=== PATIENT | female | born 1985 | race Hispanic/Latino ===

== ENCOUNTER 2018-08-24 23:45 | Day surgery (SDC) | payer OTHER ==
[2018-08-25] MEDS ORDERED: Betamet Acet/Betamet Na Ph 30 MG/5 ML VIAL IM SCH (01:00)
--- NOTE | 2018-08-25 08:32 | PRG ---
DATE OF SERVICE: 08/24/2018 PRIMARY NUTRITION SERVICES ASSOCIATE: Dr. Brady Christopher CHIEF COMPLAINT: Abdominal pain. HISTORY OF PRESENT ILLNESS: The patient is a 33-year-old female with an intrauterine at 35 weeks who has presented to Labor and Delivery with abdominal pains which the patient reports b navi several hours earlier. She denies any falls, intercourse, recent illness. She reports that her pains are every 4-5 minutes. She denies fever, illness, headache, chest pain, shortness of breath, nausea, vomiting, diarrhea, constipation, leakage of fluid or vaginal bleeding. PAST MEDICAL HISTORY: Negative. PAST SURGICAL HISTORY: Negative. OBSTETRIC HISTORY: This is her fourth . SOCIAL HISTORY: Denies drug, alcohol or tobacco use. OB LABS: Unavailable at time of dictation. REVIEW OF SYSTEMS: Per HPI. PHYSICAL EXAMINATION: VITAL SIGNS: Blood pressure 126/72, heart rate of 107, respiratory rate of 18, temperature 98.5. GENERAL: She appears to be in no acute distress. She is alert and oriented, cooperative and pleasan t to interact with. HEENT: Head is normocephalic, atraumatic. LUNGS: Clear to auscultation bilaterally. HEART: Regular rate and rhythm. ABDOMEN: Soft, gravid. EXTREMITIES: Nontender, nonedematous. CERVICAL EXAM: 1 and 50, -2 station per nursing staff unchanged after 2 hours. EXTREMITIES: Nontender, nonedematous. heart tracing performed. Baseline noted to be in the 140s with moderate long-term variability, positive accelerations, no decelerations. Tocometer showing irritability with contractions every 3- 6 minutes. ASSESSMENT AND PLAN: The patient is a 33-year-old female with an intrauterine at 35 weeks who presented with uterine contractions and concerns for labor. After 2 hours, the patient continues to have some contractions; however, has not had any cervical change. The patient lives locally and is comfortable going home. She has a followup appointment with Dr. Christopher today. Fetus has a reactiv e NST. Prior to discharge, patient was given 1 dose of 12 mg of betamethasone.
== END 2018-08-25 02:30 | disposition home health service (06) ==
LOC: L&D/OP 23:45
PROVIDERS: ATTEND Family Medicine
DX: O47.03 False labor before 37 completed weeks of gestation, third trimester (principal); Z3A.35 35 weeks gestation of pregnancy
CPT/HCPCS: 99283; J0702

== ENCOUNTER 2018-09-21 19:56 | Inpatient (IN) | payer MEDICAID, OTHER, SELFPAY ==
[2018-09-21 20:29] VITALS: BMI 31.4
[2018-09-21] MEDS ORDERED: Carboprost 250 MCG/ML AMP IM PRN (20:48)
[2018-09-21] MEDS ORDERED: Butorphanol Tartrate 1 MG/ML VIAL SLOW IVP PRN (20:48)
[2018-09-21] MEDS ORDERED: Ibuprofen 800 MG TAB PO PRN (20:48)
[2018-09-21] MEDS ORDERED: HYDROcodone/Acetaminophen 5/325 mg Tablet PO PRN (20:48)
[2018-09-21] MEDS ORDERED: Misoprostol 200 MCG TAB PR PRN (20:48)
[2018-09-21] MEDS ORDERED: Ondansetron PF 4 MG/2 ML Vial IVP PRN (20:48)
[2018-09-21] MEDS ORDERED: Lidocaine 1% (PF) 30 ML VIAL SC PRN (20:48)
[2018-09-21] MEDS ORDERED: NS / Oxytocin 40 units/1000ml 1,000 ML IV PRN (20:48)
[2018-09-21] MEDS ORDERED: Diphenoxylate HCl/Atropine Tablet PO PRN (20:48)
[2018-09-21] MEDS ORDERED: Methylergonovine 0.2 MG/ML VIAL IM PRN (20:48)
[2018-09-21] MEDS ORDERED: Lactated Ringer's 1,000 ML IV SCH (21:00)
[2018-09-21] MEDS: Lactated Ringer's 1,000 ML IV SCH (21:32)
[2018-09-21 21:43] LABS: Hemoglobin 13.1 g/dL (12.0-16.0); Mean Corpuscular HGB CONC 32.3 g/dL (32.0-36.0); Mean Corpuscular Hemoglobin 31.6 pg (27.0-31.0); Mean Corpuscular Volume 97.9 fL (78.0-98.0); Mean Platelet Volume 8.6 fL (7.4-10.4); Platelet Count 275 thou/uL (130-400); RBC Distribution Width 13.6 % (11.5-14.5); Red Blood Cell (RBC) Count 4.15 mill/uL (4.20-5.40); White Blood Cell (WBC) Count 8.9 thou/uL (4.8-10.8)
[2018-09-21 22:23] LABS: Syphilis Antibody Nonreactive (Nonreactive); Syphilis Antibody Index 0.03 S/CO (<1.00 Non-Reactive)
[2018-09-21 23:16] LABS: HBSAg Index 0.22 S/CO (0-0.99); Hep B Surf Ag Non-Reactive S/CO (NonReactive)
[2018-09-22] MEDS: Lactated Ringer's 1,000 ML IV SCH ×2 (05:20→08:49)
[2018-09-22] MEDS ORDERED: NS w/ Oxytocin 10 units 500 ML IV SCH ×2 (06:00)
[2018-09-22] MEDS ORDERED: Fentanyl 4 mcg/Bup 0.1% Cadd 100 ML ONE (08:08)
[2018-09-22] MEDS ORDERED: Promethazine HCl 25 MG/ML VIAL IM PRN (08:44)
[2018-09-22] MEDS ORDERED: Lactated Ringer's 500 ML IV PRN (08:44)
[2018-09-22] MEDS ORDERED: Acetaminophen 325 MG TAB PO PRN (08:44)
[2018-09-22] MEDS ORDERED: diphenhydrAMINE 50 MG/ML VIAL IVP PRN (08:44)
[2018-09-22] MEDS ORDERED: Ondansetron PF 4 MG/2 ML Vial IVP PRN ×2 (08:44→13:28)
[2018-09-22] MEDS ORDERED: ePHEDrine/0.9% NaCl/PF SYRINGE 50 mg/10 ml SLOW IVP PRN (08:44)
[2018-09-22] MEDS ORDERED: Naloxone HCl 0.4 mg/ml Vial IVP PRN ×2 (08:44)
[2018-09-22] MEDS ORDERED: Eucerin (Mineral Oil/Petrolatum,White) 30 gm Jar TOP PRN (08:44)
[2018-09-22] MEDS ORDERED: Communication Order-Pharmacy FS SCH (08:45)
[2018-09-22] MEDS ORDERED: Fentanyl 4 mcg/Bupivacaine 0.1% Cassette 100 ML EPIDURAL SCH (08:45)
[2018-09-22] MEDS ORDERED: Bupivacaine 0.25% HCL 30 ML VIAL ONE (12:00)
[2018-09-22] MEDS ORDERED: diphenhydrAMINE 25 MG CAP PO PRN (13:28)
[2018-09-22] MEDS ORDERED: NS / Oxytocin 40 units/1000ml 1,000 ML IV SCH (13:28)
[2018-09-22] MEDS ORDERED: Milk Of Magnesia 30 ML UDCUP PO PRN (13:28)
[2018-09-22] MEDS ORDERED: Bisacodyl 10 MG SUPP PR PRN (13:28)
[2018-09-22] MEDS ORDERED: HYDROcodone/Acetaminophen 5/325 mg Tablet PO PRN ×2 (13:28)
[2018-09-22] MEDS ORDERED: Benzocaine/Menthol 20-0.5% 60 ML CAN TOP PRN (13:28)
[2018-09-22] MEDS ORDERED: Lanolin Ointment 7 GM TUBE TOP PRN (13:28)
[2018-09-22] MEDS ORDERED: Preparation H Ointment 28 GM TUBE PR PRN (13:28)
[2018-09-22] MEDS ORDERED: NS / Oxytocin 40 units/1000ml 1,000 ML ONE (13:38)
[2018-09-22] MEDS ORDERED: Ibuprofen 800 MG TAB PO SCH (14:00)
[2018-09-22] MEDS: Ferrous Sulfate 325 MG TAB PO SCH (16:21)
[2018-09-23] MEDS: Ibuprofen 800 MG TAB PO SCH ×3 (00:01→16:06)
[2018-09-23] MEDS: Docusate Calcium (SURFAK) 240 MG CAP PO SCH ×2 (00:01→08:29)
[2018-09-23 06:17] LABS: Hemoglobin 10.3 g/dL (12.0-16.0); Mean Corpuscular HGB CONC 32.4 g/dL (32.0-36.0); Mean Corpuscular Hemoglobin 32.3 pg (27.0-31.0); Mean Corpuscular Volume 99.7 fL (78.0-98.0); Mean Platelet Volume 8.1 fL (7.4-10.4); Platelet Count 217 thou/uL (130-400); RBC Distribution Width 13.6 % (11.5-14.5); White Blood Cell (WBC) Count 10.1 thou/uL (4.8-10.8)
[2018-09-23] MEDS: Ferrous Sulfate 325 MG TAB PO SCH ×2 (08:18→18:34)
[2018-09-23 08:37] VITALS: BP 110/59; TEMP 98.4
[2018-09-23] MEDS ORDERED: Prenatal Vitamin 1 TAB PO SCH (09:00)
== END 2018-09-23 18:30 | disposition home or self-care (01) | DRG 807 ==
LOC: L&D 19:56 → 3SW 09-22 14:01
PROVIDERS: ADMIT Family Medicine; ATTEND Family Medicine
PROC: 10E0XZZ Delivery of Products of Conception, External Approach (ICD-10-PCS; principal; 2018-09-22)
PROC: 10907ZC Drainage of Amniotic Fluid, Therapeutic from Products of Conception, Via Natural or Artificial Opening (ICD-10-PCS; 2018-09-22)
PROC: 3E033VJ Introduction of Other Hormone into Peripheral Vein, Percutaneous Approach (ICD-10-PCS; 2018-09-22)
DX: O77.0 Labor and delivery complicated by meconium in amniotic fluid (principal); Z37.0 Single live birth; Z3A.39 39 weeks gestation of pregnancy; Z90.5 Acquired absence of kidney; O69.81X0 Labor and delivery complicated by cord around neck, without compression, not applicable or unspecified; O76 Abnormality in fetal heart rate and rhythm complicating labor and delivery; Z52.4 Kidney donor
CPT/HCPCS: 36415; 51702; 85027; 86780; 86850; 86900; 86901; 87340; J2001; J2405; S0020

== ENCOUNTER 2022-12-15 23:59 | Emergency (ER) | payer MEDICAID, SELFPAY ==
[2022-12-16] MEDS ORDERED: Famotidine 20 MG TAB ONE (01:36)
[2022-12-16] MEDS ORDERED: predniSONE 20 MG TAB ONE (01:36)
== END 2022-12-16 01:44 | disposition home or self-care (01) ==
LOC: ERS 23:59
DX: L50.9 Urticaria, unspecified (principal); E78.5 Hyperlipidemia, unspecified
CPT/HCPCS: 99282; J7512

== ENCOUNTER 2024-09-02 14:20 | Emergency (ER) | payer SELFPAY ==
[2024-09-02 15:28] LABS: #Basophils 0.03 10x3/uL (0.0-0.2); %Basophils 0.3 % (0.0-1.0); %Eosinophils 2.8 % (0.0-10.0); %Lymphocytes 32.1 % (21.0-51.0); %Monocytes 5.7 % (0.0-10.0); %Neutrophils 58.8 % (42.0-75.0); Hematocrit 39.1 % (36.0-47.0); Hemoglobin 13.1 g/dL (12.0-16.0); Mean Corpuscular HGB CONC 33.5 g/dL (32.0-36.0); Mean Corpuscular Hemoglobin 29.8 pg (27.0-31.0); Mean Corpuscular Volume 89.1 fL (78.0-98.0); Mean Platelet Volume 9.6 fL (7.4-10.4); Platelet Count 332 10x3/uL (130-400); RBC Distribution Width 12.3 % (11.5-14.5); Red Blood Cell (RBC) Count 4.39 mill/uL (4.20-5.40)
[2024-09-02 15:42] LABS: BHCG - Serum Negative (NEGATIVE); Pregs Control Background? CLEAR/WHITE (CLR/WHITE); Pregs Control Bar Appear? YES (CONTROL BAR)
[2024-09-02 15:48] LABS: ALT (SGPT) 13 U/L (8-55); AST (SGOT) 16 U/L (5-34); Albumin 3.7 g/dL (3.5-5.0); Alkaline Phosphatase 97 U/L (40-110); Anion Gap 12 mmol/L (10-20); BUN (Urea Nitrogen) 16 mg/dL (7.0-18.7); Bilirubin, Total 0.2 mg/dL (0.2-1.2); Calc. Creatinine Clearance 0 mL/min (70-130); Calcium 9.3 mg/dL (7.8-10.44); Carbon Dioxide 20 mmol/L (22-29); Chloride 109 mmol/L (98-107); Estimated GFR 81; Globulin 3.5 g/dL (2.4-3.5); Glucose 105 mg/dL (70-105); Lipase 43 U/L (8-78); Potassium 3.8 mmol/L (3.5-5.1); Protein, Total 7.2 g/dL (6.0-8.3); Sodium 137 mmol/L (136-145)
[2024-09-02 15:51] LABS: Troponin I Less than 0.010 ng/mL (< 0.028)
== END 2024-09-02 18:07 | disposition home or self-care (01) ==
LOC: ERS 14:20
DX: R10.13 Epigastric pain (principal)
CPT/HCPCS: 36415; 76705; 80053; 83690; 84484; 84703; 85025; 93005

== ENCOUNTER 2024-09-15 00:12 | Emergency (ER) | payer SELFPAY ==
[2024-09-15] MEDS ORDERED: Meclizine HCl 25 MG TAB ONE (00:59)
[2024-09-15] MEDS ORDERED: predniSONE 20 MG TAB ONE ×2 (00:59→01:07)
== END 2024-09-15 02:26 | disposition home or self-care (01) ==
LOC: ERS 00:12
DX: T78.2XXA Anaphylactic shock, unspecified, initial encounter (principal)
CPT/HCPCS: 93005; 94760; J7512